=== PATIENT | male | born 1965 | race African-American/Black ===

== ENCOUNTER 2019-01-21 11:13 | Emergency (ER) | payer OTHER ==
[~2019-01-21] VITALS: Ht 185.4 cm; Wt 150.0 kg
[~2019-01-21 11:13] MED LIST: ADVIL200 MG OR; LISINOPRIL10 MG PO; LISINOPRIL20 MG PO; LOVASTATIN40 MG PO; MAXZIDE-2537.5 MG/TA PO; NORVASC10 MG PO; PERCOCET 10/31 COMBO PO; TRAMADOL HCL50 MG PO; [UNRECOGNIZED DRUG - OTHER] EX
[2019-01-21 11:56] LABS: HEMOGLOBIN 9.6 g/dl (14.0-18.0); IMMATURE GRANULOCYTES 0.3 % (0.0-5.0); MEAN CORPUSCULAR HGB 29.8 pG CALC (26.0-32.0); NEUT# 6.08 thou/uL (1.82-7.42); RED BLOOD COUNT 3.22 mill/uL (4.70-6.10); RED CELL DISTRI WIDTH 13.5 % (11.5-15.5)
[2019-01-21 12:19] LABS: MEAN CELL VOLUME 93.2 fL CALC (80.0-100.0)
[2019-01-21 12:30] LABS: POTASSIUM 5.2 mmol/l (3.5-5.1)
[2019-01-21 12:32] LABS: CREATININE 7.9 mg/dL (0.7-1.3)
[2019-01-21 15:35] VITALS: BP 162/84
== END 2019-01-21 15:35 | disposition short-term general hospital (02) ==
LOC: ED 11:13
PROVIDERS: Family Medicine
DX: N28.9 Disorder of kidney and ureter, unspecified (principal); I10 Essential (primary) hypertension; E78.5 Hyperlipidemia, unspecified; Z90.5 Acquired absence of kidney

== ENCOUNTER 2020-02-04 13:12 | Emergency (ER) | payer OTHER ==
[~2020-02-04] VITALS: Ht 188 cm; Wt 145.5 kg
[~2020-02-04 13:12] MED LIST changes: +PROCRIT 1010000 U/ML IJ
[2020-02-04] MEDS ORDERED: ROCALTROL0.5 MC1 PO (13:57)
[2020-02-04] MEDS ORDERED: FUROSEMIDE20 MG PO (13:58)
[2020-02-04] MEDS ORDERED: TOPROL XL50 MG PO (13:58)
[2020-02-04] MEDS ORDERED: NIFEDIPINE ER60 MG PO (13:59)
[2020-02-04 14:18] LABS: ALBUMIN 4.4 g/dL (3.2-5.0); BILIRUBIN, TOTAL 0.4 mg/dL (0.0-1.4); C-REACTIVE PROTEIN 0.5 mg/dL (0-0.9); TOTAL PROTEIN 7.8 g/dL (6.3-8.2)
[2020-02-04 14:20] LABS: PROTHROMBIN TIME 10.2 SECONDS (9.0-12.5)
[2020-02-04 14:27] LABS: CREATININE 26.3 mg/dL (0.7-1.3); D-DIMER 9.68 mg/L (0.19-0.60)
[2020-02-04 14:32] LABS: BASO% 0 % (0-3); EOS% 0 % (0-8); IMMATURE GRANULOCYTES 0.4 % (0.0-5.0); LYMPH% 7 % (15-41); MEAN CELL VOLUME 92.8 fL CALC (80.0-100.0); MEAN CORPUSCULAR HGB 28.9 pG CALC (26.0-32.0); MEAN CORPUSCULAR HGB CONC 31.2 g/dL CAL (32.0-36.0); MONO% 5 % (2-13); NEUT# 10.57 thou/uL (1.82-7.42); NEUT% 87 % (42-76); RED BLOOD COUNT 1.52 mill/uL (4.70-6.10); RED CELL DISTRI WIDTH 15.6 % (11.5-15.5)
[2020-02-04 14:44] LABS: HEMATOCRIT 14.1 % (39.0-50.0); HEMOGLOBIN 4.4 g/dl (14.0-18.0); PLATELET COUNT 197 thou/uL (130-400)
[2020-02-04 15:18] LABS: ALBUMIN 4.1 g/dL (3.2-5.0); ALKALINE PHOSPHATASE 43 u/l (38-126); BILIRUBIN, TOTAL 0.4 mg/dL (0.0-1.4); CHLORIDE 110 mmol/l (95-108); SGOT/AST 18 u/l (17-59); SODIUM 138 mmol/l (137-146)
[2020-02-04 15:39] LABS: ANION GAP 25 (6-22 (CALC)); BUN > 120 mg/dL (9-20); BUN/CREATININE RATIO 5 (12-20 (CALC)); CARBON DIOXIDE 10 mmol/l (22-30); CREATININE 26.3 mg/dL (0.7-1.3); GFR 2 ML/MIN (>=60 (CALC)); GFR FOR AFR.AMER. 2 ML/MIN (>=60 (CALC))
[2020-02-04 15:40] LABS: POTASSIUM 6.7 mmol/l (3.5-5.1)
[2020-02-04 20:05] VITALS: BP 148/81
== END 2020-02-04 20:03 | disposition short-term general hospital (02) ==
LOC: ED 13:12
PROVIDERS: Student in an Organized Health Care Education/Training Program
DX: U07.1 COVID-19 (principal); J12.89 Other viral pneumonia; J96.00 Acute respiratory failure, unspecified whether with hypoxia or hypercapnia; I16.1 Hypertensive emergency; D64.9 Anemia, unspecified; N17.9 Acute kidney failure, unspecified; I12.9 Hypertensive chronic kidney disease with stage 1 through stage 4 chronic kidney disease, or unspecified chronic kidney disease; N18.9 Chronic kidney disease, unspecified; E87.5 Hyperkalemia

== ENCOUNTER 2020-05-26 16:24 | Emergency (ER) | payer OTHER ==
[~2020-05-26] VITALS: Ht 188 cm; Wt 127.3 kg
[~2020-05-26 16:24] MED LIST changes: +FUROSEMIDE20 MG PO; +NIFEDIPINE ER60 MG PO; +ROCALTROL0.5 MC1 PO; +TOPROL XL50 MG PO
[2020-05-26 17:53] LABS: IMMATURE GRANULOCYTES 0.1 % (0.0-5.0); MEAN CORPUSCULAR HGB 30.9 pG CALC (26.0-32.0); MEAN CORPUSCULAR HGB CONC 30.5 g/dL CAL (32.0-36.0); NEUT# 5.32 thou/uL (1.82-7.42); RED BLOOD COUNT 4.11 mill/uL (4.70-6.10); RED CELL DISTRI WIDTH 15.4 % (11.5-15.5)
[2020-05-26] MEDS ORDERED: RENVELA800 MG PO (18:00)
[2020-05-26 18:06] LABS: ALBUMIN 4.7 g/dL (3.2-5.0); BILIRUBIN, TOTAL 0.5 mg/dL (0.0-1.4)
[2020-05-26 18:11] LABS: HEMATOCRIT 41.7 % (39.0-50.0); HEMOGLOBIN 12.7 g/dl (14.0-18.0); MEAN CELL VOLUME 101.5 fL CALC (80.0-100.0)
[2020-05-26 18:14] LABS: CREATININE 14.9 mg/dL (0.7-1.3); POTASSIUM 4.9 mmol/l (3.5-5.1); TOTAL PROTEIN 8.6 g/dL (6.3-8.2)
[2020-05-26 18:50] VITALS: BP 158/84
== END 2020-05-26 18:50 | disposition short-term general hospital (02) ==
LOC: ED 16:24
PROVIDERS: Family Medicine
DX: T82.49XA Other complication of vascular dialysis catheter, initial encounter (principal); I12.0 Hypertensive chronic kidney disease with stage 5 chronic kidney disease or end stage renal disease; N18.6 End stage renal disease; Z99.2 Dependence on renal dialysis; Y83.2 Surgical operation with anastomosis, bypass or graft as the cause of abnormal reaction of the patient, or of later complication, without mention of misadventure at the time of the procedure

== ENCOUNTER 2020-07-31 12:13 | Emergency (ER) | payer MEDICARE, OTHER ==
[~2020-07-31] VITALS: Ht 188 cm; Wt 127.3 kg
[~2020-07-31 12:13] MED LIST changes: +RENVELA800 MG PO
[2020-07-31 13:42] VITALS: BP 173/98
== END 2020-07-31 14:19 | disposition home or self-care (01) ==
LOC: ED 12:13
DX: T82.590A Other mechanical complication of surgically created arteriovenous fistula, initial encounter (principal); I12.0 Hypertensive chronic kidney disease with stage 5 chronic kidney disease or end stage renal disease; N18.6 End stage renal disease; Y83.2 Surgical operation with anastomosis, bypass or graft as the cause of abnormal reaction of the patient, or of later complication, without mention of misadventure at the time of the procedure; Z99.2 Dependence on renal dialysis

== ENCOUNTER 2021-03-07 06:52 | Emergency (ER) | payer MEDICARE, MEDICAID ==
[2021-03-07 08:49] LABS: IMMATURE GRANULOCYTES 0.2 % (0.0-5.0); MEAN CELL VOLUME 103.9 fL CALC (80.0-100.0); MEAN CORPUSCULAR HGB 33.1 pG CALC (26.0-32.0); MEAN CORPUSCULAR HGB CONC 31.9 g/dL CAL (32.0-36.0); NEUT# 3.87 thou/uL (1.82-7.42); RED BLOOD COUNT 3.32 mill/uL (4.70-6.10); RED CELL DISTRI WIDTH 13.3 % (11.5-15.5)
[2021-03-07 08:52] LABS: HEMATOCRIT 34.5 % (39.0-50.0)
[2021-03-07 09:01] LABS: BILIRUBIN, TOTAL 0.6 mg/dL (0.0-1.4); POTASSIUM 4.6 mmol/l (3.5-5.1); TOTAL PROTEIN 7.9 g/dL (6.3-8.2)
[2021-03-07 09:08] LABS: CREATININE 18.2 mg/dL (0.7-1.3)
[2021-03-07 09:55] VITALS: BP 128/75
== END 2021-03-07 09:59 | disposition home or self-care (01) ==
LOC: ED 06:52
PROVIDERS: Family Medicine
DX: U07.1 COVID-19 (principal); I12.0 Hypertensive chronic kidney disease with stage 5 chronic kidney disease or end stage renal disease; N18.6 End stage renal disease; E78.00 Pure hypercholesterolemia, unspecified; Z99.2 Dependence on renal dialysis; Z23 Encounter for immunization

== ENCOUNTER 2022-04-26 07:43 | Observation (INO) | payer MEDICARE, MEDICAID ==
[2022-04-26 09:40] VITALS: BP 161/83
[2022-04-26 10:01] VITALS: BP 160/87
[2022-04-26 10:21] LABS: ALBUMIN 4.5 g/dL (3.2-5.0); BILIRUBIN, TOTAL 0.6 mg/dL (0.0-1.4)
[2022-04-26 10:22] LABS: CREATININE 14.5 mg/dL (0.7-1.3); POTASSIUM 5.2 mmol/l (3.5-5.1)
[2022-04-26 10:24] LABS: HEMATOCRIT 34.9 % (39.0-50.0); HEMOGLOBIN 11.7 g/dl (14.0-18.0); IMMATURE GRANULOCYTES 0.1 % (0.0-5.0); MEAN CELL VOLUME 100.3 fL CALC (80.0-100.0); MEAN CORPUSCULAR HGB 33.6 pG CALC (26.0-32.0); MEAN CORPUSCULAR HGB CONC 33.5 g/dL CAL (32.0-36.0); NEUT# 6.26 thou/uL (1.82-7.42); RED BLOOD COUNT 3.48 mill/uL (4.70-6.10)
[2022-04-26 10:31] VITALS: BP 147/79
[2022-04-26 11:01] VITALS: BP 159/84
--- NOTE | 2022-04-26 11:11 | NUR ---
PT TRANSPORTED TO DIALYSIS AT THIS TIME
--- NOTE | 2022-04-26 11:34 | NUR ---
patient arrived to anr dialysis unit, awake and alert, no c/o pain or discomfort, no s/s of distress noted, respirations even and unlabored on room air, awaitin dialysis chair time, blanket and po fluids offered, afternoon meal tray ordered.
[2022-04-26] MEDS ORDERED: PROCARDIA XL60 MG PO (11:44)
[2022-04-26] MEDS ORDERED: COZAAR50 MG PO (11:45)
--- NOTE | 2022-04-26 11:48 | NUR ---
afternoon meal delivered.
--- NOTE | 2022-04-26 12:10 | NUR ---
PATIENT CONSUMED 100% OF AFTERNOON MEAL, RESTING QUIETLY AT THIS TIME.
--- NOTE | 2022-04-26 16:45 | NUR ---
consents obtained and rt arm graft accessed wthout difficulty. initiated dialysis as ordered. vss. lungs clear, no swelling noted, hr nsr. updated on poc. pt pleasant and cooperative
--- NOTE | 2022-04-26 19:55 | NUR ---
completed dialysis and rt arm graft deaccessed without difficulty. pressure applied and no bleeding noted. vss.
--- NOTE | 2022-04-26 20:05 | NUR ---
Patient decides to leave AMA. Multiple attempts made to ecourage patient to remain here for continued treatment. Explained to patient all risks of leaving against medical advice including . Pt verbalized understanding of all risks. Pt also encouraged to return to [facility] at any time, especially if symptoms continue or become worse. Pt verbalized understanding. Pt thanked staff for care and left ambulatory to lobby. Pt states he has a ride waiting for him
== END 2022-04-26 20:05 | disposition left against medical advice (07) ==
LOC: ED 08:25 → ED-I 08:30 → ED 08:31 → MS2 08:31 → ED 08:35 → ANR-I 11:31
PROVIDERS: Family Medicine; ADMIT Internal Medicine; ATTEND Internal Medicine
PROC: 5A1D70Z Performance of Urinary Filtration, Intermittent, Less than 6 Hours Per Day (ICD-10-PCS; principal; 2022-04-26)
DX: I12.0 Hypertensive chronic kidney disease with stage 5 chronic kidney disease or end stage renal disease (principal); N18.6 End stage renal disease; Z99.2 Dependence on renal dialysis; D63.1 Anemia in chronic kidney disease; N25.81 Secondary hyperparathyroidism of renal origin; E87.5 Hyperkalemia; E78.00 Pure hypercholesterolemia, unspecified